=== PATIENT | male | born 1990 | race Caucasian/White ===

== ENCOUNTER 2017-10-07 17:03 | Emergency (ER) | payer BC ==
[2017-10-07 17:10] VITALS: TEMP 97.7
[2017-10-07] MEDS ORDERED: IBUPROFEN 600 MG TAB PO ONE (17:31)
--- NOTE | 2017-10-07 17:35 | EDPHY ---
General Narrative: CHIEF COMPLAINT: Right knee injury HISTORY OF PRESENT ILLNESS: Patient complains of right knee pain after a skiing injury. He was at [employer] today when he attempted to stop, his right ski got stuck on the left. His knee twisted medially. He fell to the ground and struck his knee. Sudden onset of pain in the right knee. No head strike or loss of consciousness. No neck pain. No chest or back pain. Abdominal pain or injury. No injury to the arms or the left leg. He has moderate to severe pain in the right knee. He was able to shuffle to help. ham facer applied a cardboard brace and then he was driven here by family members. He is visiting from [place] until Sunday. He has no numbness or tingling. No weakness. No bony tenderness of the foot or ankle. No other associated complaints or modifying factors. ESTABLISHED ORTHOPEDIST: None REVIEW OF SYSTEMS: Ten systems reviewed and are negative unless otherwise noted in the HPI PAST MEDICAL HISTORY: Uncomplicated medical history. PAST SURGICAL HISTORY: No recent surgeries SOCIAL HISTORY: Nonsmoker. Lives in [facility]. Visiting family until Sunday. FAMILY HISTORY: Noncontributory EXAMINATION General Appearance: Alert, no distress HEENT: Normocephalic atraumatic. Pupils equal round reactive. Neck: Supple nontender Cardiovascular: Regular rhythm. No murmur. Symmetric radial pulses 2+. Symmetric DP pulses 2+. Good signs of perfusion of the right lower extremity. Neurological: A&O, light sensation to the top of the feet and bottom of the fetus symmetric. Strength is 5/5 of both ankles. Normal proprioception of the right great toe Skin: Warm and dry, no rash. No laceration or abrasion. No ecchymosis Extremities: Moderate right knee suprapatellar effusion. Tenderness to the patella and lateral portion of the right knee. No deformity. No crepitus. Range of motion limited by pain but does retain flexion extension with activation of the extensor tendon. No tenderness of the right calf, ankle, or midfoot. There is no tenderness with firm palpation of the right calcaneus. Psychiatric: Mood and affect normal DIFFERENTIAL DIAGNOSES: Including but not limited to sprain, strain, fracture, effusion, hemarthrosis, dislocation MDM: 5:30 p.m. Acute sprain to the right knee with suprapatellar effusion on examination. He is neurovascular intact distally. No evidence of patellar tendon rupture by examination. X-ray is pending. He is in no acute distress. I have ordered ibuprofen. 5:55 p.m. x-ray reveals tibial plateau fracture and lucency on the lateral tibial condyle consistent with Segond. I have paged orthopedics to discuss. He is NPO as of 10:30 a.m. this morning. 6:10 p.m. At a lengthy discussion with orthopedic HONG Marrero, instructional technology coach with Dr. Rodrigez. We discussed the patient's nature of injury and he has reviewed the x-ray himself. He says that they would be happy to see the patient in the office tomorrow with surgery planned for Sunday, but this would require that the patient stay in [place] for 2 weeks. I presented this option to the patient he prefers to be discharged home. Ortho agrees that this is a reasonable plan that should not changes outcome. Orthopedics request that the patient be placed in a post opt ACL hinged knee brace, 0-20 degrees locked. He is to be nonweightbearing with crutches. They recommend aspirin prophylaxis. Patient would like to take this option. We are attempting to locate a hinged knee brace. He is resting comfortably at this time. I have re-evaluated him and there is no evidence of trapped meniscus. 6:33 p.m. I discussed the case with the [facility] orthotic containers sales representative, Keerthi. She will come up to this facility to place the hinged knee brace. She informs me that it will be approximately 1 hr before she will be able to be here. 7:45 p.m. [facility] orthotics containers sales representative currently at bedside fitting the hinged knee brace. 8:05 p.m. Patient re-evaluated. The hinged knee braces in place. I have answered all his questions. We discussed pain medication. We discussed ibuprofen. We discussed nonweightbearing with use of crutches. I provided the on-call orthopedic follow-up information here should he choose to be seen before he leaves. He will contact his physician and physical therapy contacts and [place] tomorrow morning to arrange appointment on Sunday or . At this time he is discharged home stable condition. SUPERVISION: This patient was independently evaluated without direct involvement of or examination by the attending physician. ED Precautions: Worsening pain. Erythema, edema, cyanosis, pallor, paresthesia or anesthesia. - Diagnostics Imaging Results: Imaging Impressions Knee X-Ray 10/07/17 17:12 Impression: 1. Avulsion fracture of the tibial spines (commonly associated with ACL injury) . 2. Segond fracture. - History Smoking Status: Current every day smoker - Objective Vital Signs: Initial Vital Signs Temperature (C) 97.7 F 10/07/17 17:07 Heart Rate 117 H 10/07/17 17:07 Respiratory Rate 18 10/07/17 17:07 Blood Pressure 136/88 H 10/07/17 17:07 O2 Sat (%) 97 10/07/17 17:07 O2 Delivery Mode Room Air Allergies/Adverse Reactions: cefaclor [From Ceclor] Allergy (Verified 10/07/17 17:06) lorazepam [From Ativan] Allergy (Verified 10/07/17 17:06) sumatriptan [From Imitrex] Allergy (Verified 10/07/17 17:07) Home Medications: Medication Instructions Recorded oxyCODONE HCL/ACETAMINOPHEN 1 each PO Q4-6PRN PRN #19 tablet 10/07/17 [Percocet 5-325 mg Tablet] Medications Given: Discontinued Medications Ibuprofen (Motrin) 600 mg PO EDNOW ONE Stop: 10/07/17 17:32 Last Admin: 10/07/17 17:39 Dose: 600 mg Oxycodone/Acetaminophen (Percocet 5/325) 2 tab PO EDNOW ONE Stop: 10/07/17 18:19 Last Admin: 10/07/17 18:31 Dose: 2 tab Oxycodone/Acetaminophen (Percocet 5/325mg Prepack#4) 1 btl TAKEHOME EDNOW ONE Stop: 10/07/17 18:39 Last Admin: 10/07/17 18:58 Dose: 1 btl Departure - Departure Disposition: Home, Routine, Self-Care Clinical Impression: Tibial plateau fracture, right Qualifiers: Encounter type: initial encounter Fracture type: closed Qualified Code(s): S82.141A - Displaced bicondylar fracture of right tibia, initial encounter for closed fracture ACL injury tear Qualifiers: Encounter type: initial encounter Laterality: right Qualified Code(s): S83.511A - Sprain of anterior cruciate ligament of right knee, initial encounter Sprain of right knee Qualifiers: Encounter type: initial encounter Involved ligament of knee: unspecified ligament Qualified Code(s): S83.91XA - Sprain of unspecified site of right knee , initial encounter Condition: Good Instructions: Oxycodone/Acetaminophen (By mouth), Leg Fracture (ED), ACL Injury (ED), Hinged Knee Brace (ED) Additional Instructions: 1. Nonweightbearing until seen by orthopedist in [place] 2. Pain medication as prescribed as needed 3. Aspirin 325 mg once daily 4. ED precautions as discussed as needed 5. Contact your physician in [place] to be seen by orthopedist on Sunday or upon return home Referrals: Surinder Rodrigez MD [Medical Doctor] - As per Instructions Prescriptions: oxyCODONE HCL/ACETAMINOPHEN [Percocet 5-325 mg Tablet] 1 each PO Q4-6PRN PRN # 19 tablet PRN Reason: Pain, Breakthrough
[2017-10-07] MEDS ORDERED: OXYCODONE/APAP 5/325 TAB PO ONE (18:18)
[2017-10-07] MEDS ORDERED: OXYCODONE/APAP 5/325MG PREPACK#4 BTL TAKEHOME ONE (18:38)
[2017-10-07 19:41] VITALS: BP 142/99; PULSE 102; RESP 16; O2SAT 92
== END 2017-10-07 20:10 | disposition home or self-care (01) ==
DX: S82.141A Displaced bicondylar fracture of right tibia, initial encounter for closed fracture (principal); S83.511A Sprain of anterior cruciate ligament of right knee, initial encounter; F17.200 Nicotine dependence, unspecified, uncomplicated; V00.321A Fall from snow-skis, initial encounter; Y92.89 Other specified places as the place of occurrence of the external cause; Y93.23 Activity, snow (alpine) (downhill) skiing, snowboarding, sledding, tobogganing and snow tubing
CPT/HCPCS: L1832